=== PATIENT | female | born 1970 | race Caucasian/White ===

== ENCOUNTER 2022-12-19 16:15 | Emergency (ER) | payer BC, OTHER ==
[2022-12-19] MEDS ORDERED: predniSONE 20 MG TABLET (UD) PO ONE (16:48)
[2022-12-19 16:50] VITALS: BP 97/68; PULSE 105; RESP 18; TEMP 98.3; BMI 32.9
[2022-12-19] MEDS ORDERED: predniSONE 20 MG TABLET (UD) ONE (16:57)
[2022-12-19] MEDS ORDERED: ALBUTEROL SO4 2.5/IPRATROPIUM 0.5 INH SOL 3 ML VIAL.NEB. NEB ONE (16:57)
[2022-12-19] MEDS: ALBUTEROL SO4 2.5/IPRATROPIUM 0.5 INH SOL 3 ML VIAL.NEB. NEB SCH ×4 (17:02→17:52)
== END 2022-12-19 18:37 | disposition home or self-care (01) ==
LOC: FER 16:15
PROC: 3E0F7GC Introduction of Other Therapeutic Substance into Respiratory Tract, Via Natural or Artificial Opening (ICD-10-PCS; principal; 2022-12-19)
DX: J45.901 Unspecified asthma with (acute) exacerbation (principal)
CPT/HCPCS: 99283-25